=== PATIENT | male | born 1965 | race Caucasian/White ===

== ENCOUNTER 2022-01-20 07:03 | Emergency (ER) | payer BC, OTHER ==
[~2022-01-20] VITALS: Ht 177.8 cm; Wt 99.7 kg
--- NOTE | 2022-01-20 07:12 | ED Chest Pain ---
General Chief Complaint: Chest Pain Stated Complaint: CHEST PAIN History of Present Illness Date Seen by Provider: Jan 20, 2022 Time Seen by Provider: 07:12 Initial Comments 57 yo male presents with mild right sided chest pain/pressure. pt reports sta rted around 2am this morning. pt reports that normally he walks 3 miles daily after work but over the last couple days, just hasnt felt good and been able to do it. pt with mild cough, mild sob. denies nausea/fever/chills/diarrhea/vomiting, radiation of pain or diaphoresis Allergies and Home Medications Allergies Coded Allergies: No Known Drug Allergies (Unverified , 01/20/22) Patient Home Medication List Home Medication List Reviewed: Yes Review of Systems Review of Systems Constitutional: No chills, No diaphoresis, No dizziness, No fever Respiratory: Cough, SOA With Exertion Cardiovascular: Chest Pain (right sided ) Gastrointestinal: Denies Abdominal Pain, Denies Diarrhea, Denies Nausea, Denies Vomiting Genitourinary: No Symptoms Reported Musculoskeletal: no symptoms reported Skin: no symptoms reported Psychiatric/Neurological: No Symptoms Reported Endocrine: No Symptoms Reported Physical Exam Vital Signs Vital Signs - First Documented 01/20/22 07:18 Temp 36.1 Pulse 84 Resp 20 B/P (MAP) 158/90 (112) Pulse Ox 95 O2 Delivery Room Air Capillary Refill : Height, Weight, BMI Height: '" Weight: lbs. oz. 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 Skin: Normal Color, Warm/Dry Progress/Results/Core Measures Results/Orders Lab Results Laboratory Tests Test 01/20/22 07:07 01/20/22 07:30 Range/Units White Blood Count 8.0 4.3-11.0 10^3/uL Red Blood Count 4.74 4.30-5.52 10^6/uL Hemoglobin 14.5 13.3-17.7 g/dL Hematocrit 42 40-54 % Mean Corpuscular Volume 89 80-99 fL Mean Corpuscular Hemoglobin 31 25-34 pg Mean Corpuscular Hemoglobin Concent 35 32-36 g/dL Red Cell Distribution Width 13.1 10.0-14.5 % Platelet Count 297 130-400 10^3/uL Mean Platelet Volume 9.7 9.0-12.2 fL Immature Granulocyte % (Auto) 0 % Neutrophils (%) (Auto) 66 42-75 % Lymphocytes (%) (Auto) 26 12-44 % Monocytes (%) (Auto) 7 0-12 % Eosinophils (%) (Auto) 0 0-10 % Basophils (%) (Auto) 1 0-10 % Neutrophils # (Auto) 5.3 1.8-7.8 10^3/uL Lymphocytes # (Auto) 2.1 1.0-4.0 10^3/uL Monocytes # (Auto) 0.5 0.0-1.0 10^3/uL Eosinophils # (Auto) 0.0 0.0-0.3 10^3/uL Basophils # (Auto) 0.0 0.0-0.1 10^3/uL Immature Granulocyte # (Auto) 0.0 0.0-0.1 10^3/uL Prothrombin Time 12.7 12.2-14.7 SEC INR Comment 0.9 0.8-1.4 Activated Partial Thromboplast Time 28 24-35 SEC Sodium Level 142 135-145 MMOL/L Potassium Level 3.8 3.6-5.0 MMOL/L Chloride Level 101 98-107 MMOL/L Carbon Dioxide Level 21 21-32 MMOL/L Anion Gap 20 H 5-14 MMOL/L Blood Urea Nitrogen 9 7-18 MG/DL Creatinine 0.87 0.60-1.30 MG/DL Estimat Glomerular Filtration Rate 99 BUN/Creatinine Ratio 10 Glucose Level 142 H 70-105 MG/DL Calcium Level 9.1 8.5-10.1 MG/DL Corrected Calcium 8.5-10.1 MG/DL Magnesium Level 2.0 1.6-2.4 MG/DL Total Bilirubin 0.5 0.1-1.0 MG/DL Aspartate Amino Transf (AST/SGOT) 62 H 5-34 U/L Alanine Aminotransferase (ALT/SGPT) 57 H 0-55 U/L Alkaline Phosphatase 41 40-136 U/L Myoglobin < 21.0 10.0-92.0 NG/ML Troponin I < 0.30 <0.30 NG/ML Pro-B-Type Natriuretic Peptide 27.1 <75.0 PG/ML Total Protein 7.6 6.4-8.2 GM/DL Albumin 4.6 H 3.2-4.5 GM/DL Lipase 59 8-78 U/L SARS-CoV-2 RNA (RT-PCR) Not Detected Not Detecte My Orders Orders - DEL REAL,ANIKA L DO Cbc With Automated Diff (01/20/22 07:12) Magnesium (01/20/22 07:12) Chest 1 View Ap/Pa Only (01/20/22 07:12) Ekg Tracing (01/20/22 07:12) Comprehensive Metabolic Panel (01/20/22 07:12) Myoglobin Serum (01/20/22 07:12) Protime With Inr (01/20/22 07:12) Partial Thromboplastin Time (01/20/22 07:12) Monitor-Rhythm Ecg Trace Only (01/20/22 07:12) Lipid Panel (01/21/22 06:00) Aspirin Chewable Tablet (Baby Aspirin Ch (01/20/22 07:15) Ed Iv/Invasive Line Start (01/20/22 07:12) Lipase (01/20/22 07:12) Troponin I Fs (01/20/22 07:12) Probnp Fs (01/20/22 07:12) Covid 19 Inhouse Test (01/20/22 07:12) Medications Given in ED Current Medications Medications Dose Ordered Sig/Jose Raul Route Start Time Stop Time Status Last Admin Dose Admin Aspirin 324 mg ONCE ONCE PO 01/20/22 07:15 01/20/22 07:16 DC 01/20/22 07:27 324 MG Vital Signs/I&O 01/20/22 07:18 Temp 36.1 Pulse 84 Resp 20 B/P (MAP) 158/90 (112) Pulse Ox 95 O2 Delivery Room Air Progress Progress Note : Progress Note Patient with negative EKG, troponin, chest x-ray. Patient admits to being under a significant amount of stress to start about 3 days ago due to family issue. Reports that that is when all his pain and everything started. It is spent quite a time visit with him as he is also having some difficulty sleeping due to this. I suspect that his symptoms are related to situational stress. This time is been over 6 hours since his discomfort started with a negative troponin negative EKG shows very unlikely coronary syndrome. Patient will reach out to his primary care provider or mental health or buddhist if he feels like he needs some further help with his family situation. Patient stable and discharged home Diagnostic Imaging Diagonstic Imaging: Xray Plain Films/CT/US/NM/MRI: chest Comments Date of Exam:01/20/22 CHEST 1 VIEW AP/PA ONLY INDICATION: Chest pain. FINDINGS: Portable chest. The lungs are clear. Heart is not enlarged. No pneumothorax or pleural effusion. No bony abnormalities. IMPRESSION: Normal portable chest. Reviewed: Reviewed by Me, Reviewed/Discussed Departure Impression Primary Impression: Acute reaction to situational stress Disposition: 01 HOME, SELF-CARE Condition: Stable Departure-Patient Inst. Patient Instructions: Stress, Chest Pain That Is Not Caused by the Heart (DC), Tips on Positive Thinking Add. Discharge Instructions: Please follow-up with your primary care provider or mental health if you need further outpatient help Return to the ER with any concerns You may try 50 of Benadryl at night to help with your sleep or [id number] melatonin All discharge instructions reviewed with patient and/or family. Voiced understanding. ANIKA DEL REAL DO Jan 20, 2022 07:12
[2022-01-20] MEDS ORDERED: ASPIRIN 81 MG CHEW (CHILDREN'S ASA) PO ONE (07:15)
[2022-01-20 07:42] LABS: BASOPHILS % (AUTO) 1 % (0-10); EOSINOPHILS % (AUTO) 0 % (0-10); HEMATOCRIT 42 % (40-54); HEMOGLOBIN 14.5 g/dL (13.3-17.7); LYMPHOCYTES # (AUTO) 2.1 10^3/uL (1.0-4.0); LYMPHOCYTES % (AUTO) 26 % (12-44); MEAN CORPUSCULAR HEMOGLOBIN 31 pg (25-34); MEAN CORPUSCULAR HGB CONC 35 g/dL (32-36); MEAN CORPUSCULAR VOLUME 89 fL (80-99); MEAN PLATELET VOLUME 9.7 fL (9.0-12.2); MONOCYTES # (AUTO) 0.5 10^3/uL (0.0-1.0); MONOCYTES % (AUTO) 7 % (0-12); NEUTROPHILS # (AUTO) 5.3 10^3/uL (1.8-7.8); NEUTROPHILS % (AUTO) 66 % (42-75); PLATELET COUNT 297 10^3/uL (130-400)
[2022-01-20 07:49] LABS: INR 0.9 (0.8-1.4); PROTHROMBIN TIME PATIENT 12.7 SEC (12.2-14.7)
[2022-01-20 08:00] LABS: CHLORIDE 101 MMOL/L (98-107); POTASSIUM 3.8 MMOL/L (3.6-5.0); SODIUM 142 MMOL/L (135-145)
[2022-01-20 08:01] LABS: ALANINE AMINOTRANSFERASE 57 U/L (0-55); ALBUMIN 4.6 GM/DL (3.2-4.5); ALKALINE PHOSPHATASE 41 U/L (40-136); BILIRUBIN,TOTAL 0.5 MG/DL (0.1-1.0); BUN/CREATININE RATIO 10; CALCIUM 9.1 MG/DL (8.5-10.1); CARBON DIOXIDE 21 MMOL/L (21-32); CREATININE SERUM 0.87 MG/DL (0.60-1.30); GFR ESTIMATED 99; GLUCOSE 142 MG/DL (70-105)
--- NOTE | 2022-01-20 08:02 | Diagnostic Imaging Report ---
INDICATION: Chest pain. FINDINGS: Portable chest. The lungs are clear. Heart is not enlarged. No pneumothorax or pleural effusion. No bony abnormalities. IMPRESSION: Normal portable chest. Dictated by: Dictated on workstation # [id number]
[2022-01-20 08:39] LABS: LIPASE 59 U/L (8-78); TOTAL PROTEIN 7.6 GM/DL (6.4-8.2)
[2022-01-20 09:01] VITALS: BP 164/81
== END 2022-01-20 09:04 | disposition home or self-care (01) ==
LOC: ER FS 07:06
DX: F43.0 Acute stress reaction (principal); Z20.822 Contact with and (suspected) exposure to COVID-19
CPT/HCPCS: 36415; 71045; 80053; 83690; 83735; 83874; 83880; 84484; 85025; 85610; 85730; 87636; 93005; 93041

== ENCOUNTER 2022-01-28 09:39 | Emergency (ER) | payer BC ==
[~2022-01-28] VITALS: Ht 167 cm; Wt 100.0 kg
[2022-01-28] MEDS ORDERED: LORazepam INJ 2 MG/ML (ATIVAN) VIAL IVP ONE (10:15)
[2022-01-28] MEDS ORDERED: NS IV 1000 ML 1,000 ML IV SCH (10:15)
[2022-01-28 10:23] LABS: BASOPHILS % (AUTO) 1 % (0-10); EOSINOPHILS # (AUTO) 0.1 10^3/uL (0.0-0.3); EOSINOPHILS % (AUTO) 3 % (0-10); HEMATOCRIT 39 % (40-54); HEMOGLOBIN 13.4 g/dL (13.3-17.7); LYMPHOCYTES # (AUTO) 1.4 10^3/uL (1.0-4.0); LYMPHOCYTES % (AUTO) 35 % (12-44); MEAN CORPUSCULAR HEMOGLOBIN 31 pg (25-34); MEAN CORPUSCULAR HGB CONC 34 g/dL (32-36); MEAN CORPUSCULAR VOLUME 89 fL (80-99); MEAN PLATELET VOLUME 9.3 fL (9.0-12.2); MONOCYTES # (AUTO) 0.6 10^3/uL (0.0-1.0); MONOCYTES % (AUTO) 14 % (0-12); NEUTROPHILS # (AUTO) 1.9 10^3/uL (1.8-7.8); NEUTROPHILS % (AUTO) 48 % (42-75); PLATELET COUNT 134 10^3/uL (130-400)
--- NOTE | 2022-01-28 10:25 | Diagnostic Imaging Report ---
Portable erect AP chest at 10:00 AM. INDICATION: Chest pain COMPARISON: 01/20/2022 FINDINGS: The heart size is stable when compared to the prior exam. The lungs are clear. There is no evidence for failure, pneumonia or for a pleural effusion. The mediastinum is not widened. The osseous structures are intact. The deformity of the proximal left clavicle seen previously is again evident and no different. IMPRESSION: There is no evidence for active disease. Dictated by: Dictated on workstation # [id number]
--- NOTE | 2022-01-28 10:36 | ED Chest Pain ---
General Chief Complaint: Chest Pain Stated Complaint: CHEST PAINS Nursing Triage Note: Patient has been brought to ER by EMS with cc of having a syncopal episode while in the shower. Patient reports that he had taken his normal 2 mile walk before work and while taking a shower he passed out. He reports that after passing out his face was numb and he was having stabbing chest pain. He reports the chest has been ongong for the last week. He states that he has not been sleeping well for the last 6 months. He reports being seen in the ER last week for the chest pain. He has not seen his doctor for the ongoing chest pain. He has been taking aspirin for his pain but it has not helped much. Source: patient Exam Limitations: no limitations History of Present Illness Date Seen by Provider: Jan 28, 2022 Time Seen by Provider: 10:15 Initial Comments Patient is a 57-year-old male who presents to the emergency department with intermittent parasternal chest pain for the past several days and syncopal episode while in the shower. Patient states he took his blood pressure this morning and then went on his usual 2 mile walk. He denies experiencing chest pain during the walk but reports feeling anxious and feeling numbness around his face. He then proceeded to take a shower and had a brief syncopal episode with no LOC for few seconds. He denies hitting his head, headache, palpitations or chest pain prior to episode. After passing out patient reports numbness and sharp chest pain. Patient was given nitroglycerin and aspirin by EMS. Chest pain is subsided but he still remains anxious. He denies history of coronary disease, arrhythmia or exertional chest pain. He states he is under significant stress related to a close family member who struggles with addiction. Denies drugs or alcohol and is a non-smoker. No other acute symptoms or complaints. Timing/Duration: 1 hour Severity/Quality: mild Location: substernal, central Radiation: other Prior CP/Workup: other Modifying Factors: improves with other Allergies and Home Medications Allergies Coded Allergies: No Known Drug Allergies (Unverified , 01/20/22) Patient Home Medication List Home Medication List Reviewed: Yes Review of Systems Review of Systems Constitutional: see HPI EENTM: See HPI Respiratory: See HPI Cardiovascular: See HPI Gastrointestinal: See HPI Genitourinary: See HPI Musculoskeletal: see HPI Skin: see HPI Psychiatric/Neurological: See HPI Endocrine: See HPI Hematologic/Lymphatic: See HPI All Other Systems Reviewed Negative Unless Noted: Yes Past Uihjquq-[id number]-Kpuaye Hx Patient Social History Tobacco Use?: No Substance use?: No Alcohol Use?: Yes Alcohol Frequency: Once in a while Pt feels they are or have been: No Past Medical History Surgery/Hospitalization HX: HTN; Depression Physical Exam Vital Signs Vital Signs - First Documented 01/28/22 09:57 Temp 36.4 Pulse 86 Resp 16 B/P (MAP) 134/79 (97) Pulse Ox 95 O2 Delivery Room Air Capillary Refill : Height, Weight, BMI Height: '" Weight: lbs. oz. 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 Focused Exam Sepsis Stage: Ruled Out Progress/Results/Core Measures Results/Orders Lab Results Laboratory Tests Test 01/28/22 09:48 01/28/22 11:41 Range/Units White Blood Count 4.0 L 4.3-11.0 10^3/uL Red Blood Count 4.40 4.30-5.52 10^6/uL Hemoglobin 13.4 13.3-17.7 g/dL Hematocrit 39 L 40-54 % Mean Corpuscular Volume 89 80-99 fL Mean Corpuscular Hemoglobin 31 25-34 pg Mean Corpuscular Hemoglobin Concent 34 32-36 g/dL Red Cell Distribution Width 13.8 10.0-14.5 % Platelet Count 134 130-400 10^3/uL Mean Platelet Volume 9.3 9.0-12.2 fL Immature Granulocyte % (Auto) 1 % Neutrophils (%) (Auto) 48 42-75 % Lymphocytes (%) (Auto) 35 12-44 % Monocytes (%) (Auto) 14 H 0-12 % Eosinophils (%) (Auto) 3 0-10 % Basophils (%) (Auto) 1 0-10 % Neutrophils # (Auto) 1.9 1.8-7.8 10^3/uL Lymphocytes # (Auto) 1.4 1.0-4.0 10^3/uL Monocytes # (Auto) 0.6 0.0-1.0 10^3/uL Eosinophils # (Auto) 0.1 0.0-0.3 10^3/uL Basophils # (Auto) 0.0 0.0-0.1 10^3/uL Immature Granulocyte # (Auto) 0.0 0.0-0.1 10^3/uL Sodium Level 144 135-145 MMOL/L Potassium Level 3.3 L 3.6-5.0 MMOL/L Chloride Level 100 98-107 MMOL/L Carbon Dioxide Level 24 21-32 MMOL/L Anion Gap 20 H 5-14 MMOL/L Blood Urea Nitrogen 6 L 7-18 MG/DL Creatinine 0.73 0.60-1.30 MG/DL Estimat Glomerular Filtration Rate 105 BUN/Creatinine Ratio 8 Glucose Level 198 H 70-105 MG/DL Calcium Level 8.5 8.5-10.1 MG/DL Corrected Calcium 8.3 L 8.5-10.1 MG/DL Total Bilirubin 0.4 0.1-1.0 MG/DL Aspartate Amino Transf (AST/SGOT) 51 H 5-34 U/L Alanine Aminotransferase (ALT/SGPT) 65 H 0-55 U/L Alkaline Phosphatase 37 L 40-136 U/L Troponin I < 0.30 < 0.30 <0.30 NG/ML Pro-B-Type Natriuretic Peptide < 5.0 <125.0 PG/ML Total Protein 7.2 6.4-8.2 GM/DL Albumin 4.3 3.2-4.5 GM/DL My Orders Orders - BRIDGETT SHIPLEY DO Cbc With Automated Diff (01/28/22 09:57) Comprehensive Metabolic Panel (01/28/22 09:57) Ekg Tracing (01/28/22 09:57) Chest 1 View Ap/Pa Only (01/28/22 09:57) Troponin I Fs (01/28/22 09:57) Lorazepam Injection (Ativan Injection) (01/28/22 10:15) Ns Iv 1000 Ml (Sodium Chloride 0.9%) (01/28/22 10:15) Probnp Fs (01/28/22 09:57) Troponin I Fs (01/28/22 11:09) Medications Given in ED Current Medications Medications Dose Ordered Sig/Jose Raul Route Start Time Stop Time Status Last Admin Dose Admin Lorazepam 1 mg ONCE ONCE IVP 01/28/22 10:15 01/28/22 10:16 DC 01/28/22 10:17 1 MG Vital Signs/I&O 01/28/22 09:57 Temp 36.4 Pulse 86 Resp 16 B/P (MAP) 134/79 (97) Pulse Ox 95 O2 Delivery Room Air Blood Pressure Mean: 97 Departure Communication (Admissions) Chest x-ray: No acute cardiopulmonary disease per radiology report. EKG: Sinus rhythm, no acute ST-T wave changes. Patient with atypical chest pain starting after a brief syncopal episode in the shower. Chest pain is consistent with anxiety with perioral numbness. Patient is under increased anxiety and has had difficulty sleeping the past few days. He denies exertional chest pain palpitations or shortness of breath. Repeat troponin and EKG are nonacute. Patient did receive Ativan with resolution of his facial numbness in the ED. He is currently symptom-free. Syncope is likely multifactorial related to mild dehydration, vasodilation from heat exposure exacerbated while taking a shower in addition to his home blood pressure medication. Vital signs are stable in the ED. Comfortable discharging the patient home with anxiety medications with instructions to follow-up with his PCP for additional outpatient screening and for community mental health services. This discharge plan discussed with the patient in detail who is comfortable with recommendations. Return precautions reviewed. Patient verbalizes understanding agreement discharge instructions prior to departure. Impression Primary Impression: Anxiety state Additional Impressions: Chest pain Syncope Disposition: 01 HOME, SELF-CARE Condition: Stable Departure-Patient Inst. Decision time for Depature: 12:15 Referrals: NO,LOCAL PHYSICIAN (PCP) Primary Care Physician Patient Instructions: Anxiety, Adult ED, Syncope (Fainting) (DC), Chest Pain, Adult ED Add. Discharge Instructions: You were evaluated in the emergency department for fainting spell, chest pain and anxiety. The exact cause of your symptoms has not been determined. Please avoid taking blood pressure medication prior to exercise and shower, and increase daily fluid intake. Hold daily blood pressure medication if you feel dizzy or lightheaded and take newly prescribed anxiety medication as directed. Follow-up with your PCP for reevaluation and coordination of further outpatient testing. Do not take anxiety medication if driving or performing any potential dangerous activity. Return to the ED if new or worsening symptoms. All discharge instructions reviewed with patient and/or family. Voiced understanding. Scripts Hydroxyzine HCl (Hydroxyzine HCl) 50 Mg Tablet 50 MG PO Q6H, #10 TAB Prov: BRIDGETT SHIPLEY DO 01/28/22 BRIDGETT SHIPLEY DO Jan 28, 2022 10:36
[2022-01-28 10:41] LABS: ALANINE AMINOTRANSFERASE 65 U/L (0-55); ALKALINE PHOSPHATASE 37 U/L (40-136); BILIRUBIN,TOTAL 0.4 MG/DL (0.1-1.0); BUN/CREATININE RATIO 8; CALCIUM 8.5 MG/DL (8.5-10.1); CARBON DIOXIDE 24 MMOL/L (21-32); CHLORIDE 100 MMOL/L (98-107); CREATININE SERUM 0.73 MG/DL (0.60-1.30); GFR ESTIMATED 105; GLUCOSE 198 MG/DL (70-105); POTASSIUM 3.3 MMOL/L (3.6-5.0); SODIUM 144 MMOL/L (135-145); TOTAL PROTEIN 7.2 GM/DL (6.4-8.2)
[2022-01-28 10:42] LABS: ALBUMIN 4.3 GM/DL (3.2-4.5)
[2022-01-28] MEDS ORDERED: LORA-405 SL ×2 (12:21→12:49)
[2022-01-28] MEDS ORDERED: HYDR50TA76 PO (12:51)
[2022-01-28 13:16] VITALS: BP 133/71
== END 2022-01-28 13:00 | disposition home or self-care (01) ==
LOC: EDUNIT# 09:39 → ER FS 09:40
DX: F41.1 Generalized anxiety disorder (principal); R55 Syncope and collapse
CPT/HCPCS: 36415; 71045; 80053; 83880; 84484; 85025; 93005